=== PATIENT | female | born 1940 | race Caucasian/White ===

== ENCOUNTER 2017-05-05 17:49 | Inpatient (IN) | payer OTHER ==
[2017-05-05] MEDS ORDERED: IPRATROPIUM/ALBUTEROL SULFATE 3 ML AMPUL.NEB NEB ONE (17:55)
[2017-05-05] MEDS ORDERED: methylPREDNISolone SOD SUCC 125 MG/2 ML VIAL IVP ONE (17:56)
--- NOTE | 2017-05-05 18:15 | ED Physician Documentation ---
Upper Respiratory Symptoms - HISTORIAN Historian: patient - HPI Stated Complaint: diff breathing Chief Complaint: Wheezing Onset: days ago (14) Context: denies: recent foreign travel, recent chemotherapy, multiple patients, same sx Severity: mild Associated Symptoms: chills, productive cough, shortness of breath, headache. denies: fever, sweating, sore throat, chest pain Worsened by Deep Breath: Yes Further Comments: yes (She states two weeks ago she started to feel congested and she did at that time stop smoking. She is coughing (productive) she has fatigue, headache, denies a fever. Over the last two weeks she has had an increase in pedal edema. She denies any history of CHF or COPD.) - ROS CONST/EYES: weakness CVS/RESP: shortness of breath. denies: chest pain, palpitations LYMPH: denies: rash GI/: denies: abdominal pain, problems urinating, vomiting, nausea NEURO/PSYCH: denies: dizziness MS/SKIN: muscle aches. denies: rash - PAST HX Lung Disease: none PE Risk Factors: none Surgeries/Procedures: none Immunizations: referred to PCP Allergies/Adverse Reactions: Allergies Allergy/AdvReac Type Severity Reaction Status Date / Time No Known Allergies Allergy Unverified 05/05/17 17:58 Home Medications: Ambulatory Orders Medication Instructions Recorded NK [NK] 05/05/17 - SOCIAL HX Smoking History: other (quit two weeks ago ) Alcohol Use: none Drug Use: none - FAMILY HX Family History: none - VITAL SIGNS Vital Signs: Vital Signs Temp Pulse Resp BP Pulse Ox 97.9 F 70 18 114/69 93 05/06/17 01:51 05/06/17 01:51 05/06/17 01:51 05/06/17 01:51 05/06/17 01:51 - REVIEWED ASSESSMENTS Nursing Assessment Reviewed: Yes Vitals Reviewed: Yes ED Results Lab/Radiology - Lab Results Lab Results: Lab Results 05/05/17 05/05/17 05/05/17 18:13 18:12 18:12 WBC 19.40 K/ul H K/ul (4.00-12.00) RBC 4.85 M/ul M/ul (3.90-5.20) Hgb 14.1 g/dL g/dL (12.0-16.0) Hct 41.7 % % (34.5-46.5) MCV 85.9 fl fl (80.0-100.0) MCH 29.1 pg pg (28.0-34.0) MCHC 33.8 g/dL g/dL (30.0-36.0) RDW 12.5 % % (11.3-14.3) Plt Count 378 K/mm3 K/mm3 (130-400) Sodium 129 mmol/L L mmol/L (136-145) Potassium 3.2 mmol/L L mmol/L (3.5-5.1) Chloride 92 mmol/L L mmol/L (98-107) Carbon Dioxide 28 mmol/L mmol/L (22-30) BUN 16 mg/dL mg/dL (7-17) Creatinine 0.60 mg/dL mg/dL (0.52-1.04) Estimated Creat Clear 110 Est GFR ( Amer) > 60 (60 - ) Est GFR (Non-Af Amer) > 60 (60 - ) Glucose 112 mg/dL H mg/dL (74-106) Calcium 8.6 mg/dL mg/dL (8.4-10.2) Total Bilirubin 0.8 mg/dL mg/dL (0.2-1.3) AST 34 U/L U/L (15-46) ALT 54 U/L U/L (13-69) Alkaline Phosphatase 96 U/L U/L (38-126) NT-Pro-B Natriuret Pep 196.7 pg/mL H pg/mL (15.0-125.0) Total Protein 6.9 g/dL g/dL (6.3-8.2) Albumin 3.2 g/dL L g/dL (3.5-5.0) - Radiology Radiology Impressions: Technique pa and lateral upright Findings: There bibasilar infiltrates. Cardiomegaly is present. The aorta is tortuous and calcified. Bilateral costophrenic angle blunting is present. Thoracic spondylosis and aortic tortuosity are present. I see no hilar or mediastinal mass. There is no pleural effusion or lesion of the bony thorax. Impression: Bibasilar infiltrates Cardiomegaly. Tortuous thoracic aorta. Bilateral costophrenic angle blunting Electronically signed on May 05, 2017 6:31:40 PM AUTOMOBILE MECHANIC MOTOR by: Andrea Dillard - Orders Orders: ED Orders Category Date Time Status Place IV Lock 1T Care 05/05/17 17:56 Active CHEST 2 VIEW [CHEST P.A.&LAT 2 VIEWS] [RAD] Stat Exams 05/05/17 17:55 Completed BLOOD CULTURE Stat Lab 05/05/17 21:04 Received BNP [NT-proBNP] Stat Lab 05/05/17 18:12 Completed CBC/PLATELET/DIFF Stat Lab 05/05/17 18:13 Completed CMP Stat Lab 05/05/17 18:12 Completed 0.9 % Sodium Chloride [Normal Saline] 1,000 ml Med 05/05/17 19:18 Discontinued IV Q1H 0.9 % Sodium Chloride [Sodium Chloride] 100 ml Med 05/05/17 18:44 Discontinued IV .STK-MED Ipratropium/Albuterol Sulfate [Duoneb] Med 05/05/17 17:55 Discontinued 3 ml NEB NOW ONE Potassium Chloride [Klor-Con M20] Med 05/05/17 19:18 Discontinued 20 meq PO NOW ONE cefTRIAXone SODIUM [Rocephin] Med 05/05/17 19:00 Ordered 1 gm IV QD methylPREDNISolone SOD SUCC [Solu-MEDROL] Med 05/05/17 17:56 Discontinued 125 mg IVP NOW ONE Upper Respiratory Symptoms - EXAM General Appearance: alert, mild distress EENT: pharynx nml Neck: normal inspection Respiratory: wheezes, rhonchi, other (mild resp distress - post neb moving more air although rhonchi and wheezing with mild distress still present ) Abdomen: non-tender CVS: reg rate & rhythm, heart sounds normal, equal pulses, no murmur Skin: color nml, no rash, warm,dry Extremities: non-tender, normal range of motion, edema Neuro/Psych: oriented x3, neuro intact, mood/affect nml Discharge Clincal Impression: Pneumonia Qualifiers: Pneumonia type: due to unspecified organism Laterality: bilateral Lung location : lower lobe of lung Qualified Code(s): J18.9 - Pneumonia, unspecified organism Condition: Stable Disposition: ADMITTED INPATIENT Decision to Admit: [id number] Date of Decison to Admit: 05/05/17 Decision Time: 20:00
[2017-05-05] MEDS ORDERED: cefTRIAXone SODIUM 1 GM VIAL ONE ×2 (18:42→18:45)
[2017-05-05] MEDS ORDERED: 0.9 % SODIUM CHLORIDE 100 ML IV ONE (18:44)
[2017-05-05 18:51] LABS: eGFR (African) > 60; eGFR (Non-African) > 60
[2017-05-05 18:56] LABS: MEAN CORPUSCULAR HEMOGLOBIN 29.1 pg (28.0-34.0); MEAN CORPUSCULAR VOLUME 85.9 fl (80.0-100.0)
[2017-05-05] MEDS ORDERED: 0.9 % SODIUM CHLORIDE 1,000 ML IV ONE (19:18)
[2017-05-05] MEDS ORDERED: POTASSIUM CHLORIDE 20 MEQ TABLET.ER PO ONE (19:18)
[2017-05-05] MEDS: cefTRIAXone SODIUM 1 GM VIAL IV SCH (19:30)
[2017-05-05] MEDS ORDERED: IPRATROPIUM/ALBUTEROL SULFATE 3 ML AMPUL.NEB NEB PRN (19:32)
--- NOTE | 2017-05-05 19:45 | Diagnostic Imaging Report ---
MARY KAY STALEY [facility] [address] [facility] [address] [place], [place]. [address] Report Submission Date: May 05, 2017 6:31:40 PM METAL BENDING MACHINE OPERATOR Patient Study Name: ROJELIO AGUAYO Date: May 05, 2017 6:16:27 PM METAL BENDING MACHINE OPERATOR Modality Type: CR Gender: F Description: CHEST : 42 Institution: [facility] Physician: MARY KAY STALEY Pa and lateral chest Clinical history : Coughing Technique pa and lateral upright Findings: There bibasilar infiltrates. Cardiomegaly is present. The aorta is tortuous and calcified. Bilateral costophrenic angle blunting is present. Thoracic spondylosis and aortic tortuosity are present. I see no hilar or mediastinal mass. There is no pleural effusion or lesion of the bony thorax. Impression: Bibasilar infiltrates Cardiomegaly. Tortuous thoracic aorta. Bilateral costophrenic angle blunting Electronically signed on May 05, 2017 6:31:40 PM METAL BENDING MACHINE OPERATOR by: Andrea GUSTAFSON
[2017-05-05 20:50] VITALS: BMI 28.8
[2017-05-05] MEDS ORDERED: ENOXAPARIN SODIUM 30 MG/0.3 ML DISP.SYRIN SQ ONE (20:51)
[2017-05-05] MEDS ORDERED: SALINE FLUSH 10 ML DISP.SYRIN IVF ONE (20:51)
[2017-05-05] MEDS: ENOXAPARIN SODIUM 30 MG/0.3 ML DISP.SYRIN SQ SCH (20:53)
[2017-05-06 07:49] LABS: eGFR (African) > 60; eGFR (Non-African) > 60
--- NOTE | 2017-05-06 07:50 | Diagnostic Imaging Report ---
[facility] [address] [facility].[address] [address] Report Submission Date: May 06, 2017 7:15:35 AM SEO ENGINEER Patient Study Name: ROJELIO AGUAYO Date: May 06, 2017 6:56:14 AM SEO ENGINEER Modality Type: CR Gender: F Description: CHEST : 42 Institution: [facility] Physician: MARY KAY STALEY HISTORY: 76-year-old female with cough COMPARISON: Chest x-ray from the previous day TECHNIQUE: 2 views of the chest were performed. FINDINGS: Bibasilar infiltrates are re-identified, greater posteriorly. No pneumothorax or pulmonary edema. The heart is not enlarged. 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 IMPRESSION: Stable bibasilar infiltrates. Electronically signed on May 06, 2017 7:15:35 AM SEO ENGINEER by: Rick GUSTAFSON
[2017-05-06 07:58] LABS: MEAN CORPUSCULAR VOLUME 86.2 fl (80.0-100.0)
[2017-05-06 08:32] LABS: MONOCYTES % 3 % (0-11); SEGMENTED NEUTROPHILS % 84 % (39-79)
[2017-05-06 11:01] LABS: MONOCYTES % 2 % (0-11); SEGMENTED NEUTROPHILS % 89 % (39-79)
[2017-05-06] MEDS ORDERED: 0.9 % SODIUM CHLORIDE 250 ML IV ONE (11:24)
[2017-05-06] MEDS ORDERED: AZITHROMYCIN 500 MG VIAL IV ONE (11:24)
[2017-05-06] MEDS ORDERED: SALINE FLUSH 10 ML DISP.SYRIN IVF ONE ×4 (11:24→19:37)
[2017-05-06] MEDS ORDERED: ENOXAPARIN SODIUM 30 MG/0.3 ML DISP.SYRIN SQ ONE (11:24)
--- NOTE | 2017-05-06 14:23 | History and Physical Report ---
History of Present Illnes - History of Present Illness Reason for Visit: dyspnea History of Present Illness: 76-year-old white female who states that the last two weeks she had not been feeling well. Patient is been having some increasing shortness of breath dyspnea. Over the last week has developed a cough some dark yellow phlegm. Patient denies any hemoptysis. Patient denies any wheezing. Patient does not have a history of COPD emphysema congestive heart failure pulmonary edema or asthma. Patient sister did call for an ambulance transferred for the patient. Any emergency room patient was noted be hypoxic with and DAGOBERTO to 82% on room air. Chest x-ray some bilateral Basler infiltrates. Patient was subsequently admitted to the hospital for further care and evaluation. - Past Medical History Cardiac: denies: CAD, CHF, HTN Pulmonary: denies: Asthma, COPD, Pulmonary embolus - Past Surgical History Past Surgical History: Cataract Removal (OU) - Past Family History Mother Family History: (86yo Alzheimer's dementia) Father Family History: (79yo Parkinson's disease) Sister 1 Family History: None (Good health) Sister 2 Family History: None (Good helath) Brother 1 Family History: (Alzheimier's demntia) - Past Social History Smoke: # pack years (61), 1 pack per day, Quit (2 weeks ago) Occupation: retired Alcohol: None Drugs: None Lives: Alone - Health Maintenance Health Maintenance: Influenza Vaccine. denies: Pneumococcal Vaccine Influenza Vaccine: Current for this Influenza Season Pneumonia Vaccine: No Resuscitation Status: Resusciation Status Resuscitation Status Full Code - Unable to Obtain History Unable to Obtain: No Review of Systems - Review of Systems Constitutional: Weakness. negative: Fever, Chills, Sweats Eyes: negative: pain, vision change, conjunctivae inflammation, eyelid inflammation, redness ENT: negative: Ear Pain, Ear Discharge, Nose Pain, Nose Discharge, Nose Congestion, Throat Pain, Throat Swelling Respiratory: Cough, Shortness of Breath, SOB with Excertion, Sputum. negative: Dry, Hemoptysis, Wheezing Cardiovascular: negative: Chest Pain, Palpitations, Orthopnea, Edema, Light Headedness Gastrointestinal: negative: Nausea, Vomiting, Abdominal Pain, Diarrhea, Constipation, Melena Genitourinary: negative: Dysuria, Frequency Musculoskeletal: negative: Neck Pain, Shoulder Pain Skin: negative: Rash Neurological: negative: Weakness, Numbness, Change in Speech, Confusion - Medications/Allergies Allergies/Adverse Reactions: Allergies Allergy/AdvReac Type Severity Reaction Status Date / Time No Known Allergies Allergy Unverified 05/05/17 17:58 Current Inpatient Medications: Current Inpatient Medications Albuterol/Ipratropium (Duoneb) 3 ml NEB Q4 PRN PRN Reason: Wheezing Ceftriaxone Sodium (Rocephin) 1 gm IV QD [facility] Last Admin: 05/05/17 19:30 Dose: 1 gm Enoxaparin Sodium (Lovenox) 30 mg SQ QD [facility] Stop: 05/18/17 20:01 Last Admin: 05/05/17 20:53 Dose: 30 mg Azithromycin 500 mg/ Sodium (Chloride) 250 mls @ 125 mls/hr IV Q24H [facility] Stop: 05/11/17 10:59 Exam - Exam Vital Signs: Vital Signs (72 hours) 05/05/17 05/05/17 05/05/17 19:29 20:00 21:26 Temperature 98.8 F 98.7 F 98.8 F Pulse Rate [ 79 89 79 Pulse ox] Respiratory 18 16 18 Rate Blood Pressure 153/84 147/57 153/84 [Left Arm] O2 Sat by Pulse 92 92 92 Oximetry 05/06/17 05/06/17 05/06/17 01:51 06:00 09:44 Temperature 97.9 F 97.4 F L 96.8 F L Pulse Rate [ 70 63 57 L Pulse ox] Respiratory 18 18 20 Rate Blood Pressure 114/69 144/70 120/68 [Left Arm] O2 Sat by Pulse 93 92 94 Oximetry 05/06/17 10:00 Temperature Pulse Rate [ 57 L Pulse ox] Respiratory 20 Rate Blood Pressure [Left Arm] O2 Sat by Pulse Oximetry General: Alert, Oriented to Person, Oriented to Place, Oriented to Time, Cooperative, Mild distress HEENT: Atraumatic, PERRLA, EOMI, Mouth Mucous membr. moist/[place], Nose Mucous membr. moist/[place], Dentition Normal (in fair repair) Neck: Normal Range of Motion Carotids: WNL Thyroid: WNL Lungs: Normal air movement, Speaks full Sentences, Rales, Rhonchi (bases bilaterall) Cardiovascular: Regular rate, Normal S1, Normal S2, No murmurs Abdomen: Normal bowel sounds, Soft, No tenderness, No hepatospenomegaly, No masses Integumentary: Normal, [place], Warm, Dry Extremities: No clubbing, No cyanosis, No edema, Normal pulses, No tenderness/ swelling Neurological: Normal gait, Normal speech, Strength Equal Bilat, Normal tone, Sensation intact, Cranial nerves 3-12 NL, Reflexes 2+ Psych/Mental Status: Mental status NL, Mood NL, Appropriate Affect, Intact Judgment - Laboratory Results Laboratory Results: Laboratory Results 05/06/17 05/06/17 06:40 06:40 WBC 16.20 H RBC 4.50 Hgb 13.0 Hct 38.8 MCV 86.2 MCH 29.0 MCHC 33.6 RDW 12.6 Plt Count 357 Seg Neutrophils % 89 H Lymphocytes % 9 L Monocytes % 2 Plt Morphology Comment Normal RBC Morph Comment Normal Sodium 134 L Potassium 3.5 Chloride 99 Carbon Dioxide 28 BUN 14 Creatinine 0.50 L Estimated Creat Clear 135 Est GFR ( Amer) > 60 Est GFR (Non-Af Amer) > 60 Glucose 141 H Calcium 8.4 Total Bilirubin 0.3 AST 32 ALT 55 Alkaline Phosphatase 88 Total Protein 6.1 L Albumin 2.7 L Assessment/Plan - Assessment/Plan (1) Basal pneumonia of both lungs Status: Acute Assessment: Patient will be started on hypo nebulization treatments. Patient be started on Rocephin and azithromycin for antibiotic therapy. Will monitor patient oxygen need. Patient will be started on supplemental oxygen. Blood cultures have been drawn. VTE Assessment - RISK FACTOR SCORE VTE RISK FACTOR SCORES: AGE OVER 60 YEARS, ACUTE INFECTION OTHER THEN SEPSIS, ANTICIPATED BED CONFINEMENT OR IMMOBILIZATION > 24 HOURS (needs VTE prophalaxis)
[2017-05-06] MEDS: AZITHROMYCIN 500 MG in 0.9 % SODIUM CHLORIDE 250 ML IV SCH (14:45)
[2017-05-06] MEDS: cefTRIAXone SODIUM 1 GM VIAL IV SCH (18:50)
[2017-05-06] MEDS: ENOXAPARIN SODIUM 30 MG/0.3 ML DISP.SYRIN SQ SCH (19:47)
[2017-05-06] MEDS ORDERED: IPRATROPIUM/ALBUTEROL SULFATE 3 ML AMPUL.NEB NEB ONE (20:12)
[2017-05-07] MEDS ORDERED: SALINE FLUSH 10 ML DISP.SYRIN IV SCH (09:00)
--- NOTE | 2017-05-07 12:17 | Discharge Summary ---
Discharge Summary - Discharge Sumary History of Present Illness: 76-year-old white female who states that the last two weeks she had not been feeling well. Patient is been having some increasing shortness of breath dyspnea. Over the last week has developed a cough some dark yellow phlegm. Patient denies any hemoptysis. Patient denies any wheezing. Patient does not have a history of COPD emphysema congestive heart failure pulmonary edema or asthma. Patient sister did call for an ambulance transferred for the patient. Any emergency room patient was noted be hypoxic with and DAGOBERTO to 82% on room air. Chest x-ray some bilateral Basler infiltrates. Patient was subsequently admitted to the hospital for further care and evaluation. Condition at Discharge: Stable Home Medications: Ambulatory Orders Medication Instructions Recorded Azithromycin [Zithromax] 250 mg PO DAILY #3 tablet 05/07/17 Cefdinir 300 mg PO BID #14 capsule 05/07/17 Consultations this Visit: None Procedures this Visit: None Allergies/Adverse Reactions: Allergies Allergy/AdvReac Type Severity Reaction Status Date / Time No Known Allergies Allergy Unverified 05/05/17 17:58 Discharge Summary: Patient was admitted to the hospital. Blood cultures were drawn and subsequently came back no growth. Patient was given a dose of Solu-Medrol IV started on nebulation treatments of Duoneb. Patient was started on Ceftriaxone and azithromycin IV. Patient WBC count did drop from 19,000 to 16,000. Patient was mildly hyponatremia with a sodium of 129 on admission at discharge was 134. Patient did have some mild hyperglycemia during the hospitalization. Patient denied any history of diabetes. At the time to discharge patient stated she was feeling much better was felt that she could be managed on an outpatient basis is patient was subsequently discharged home in stable condition. - Final Diagnosis (1) Basal pneumonia of both lungs Problems: Patient with discharged on PO azithromycin and Cefdinir (2) Hyponatremia Problems: improved (3) Hyperglycemia Problems: Patient was advised to follow prefer primary care provider for further testing to see if she is diabetic
[2017-05-07] MEDS: AZITHROMYCIN 500 MG in 0.9 % SODIUM CHLORIDE 250 ML IV SCH (12:36)
[2017-05-07 14:46] VITALS: BP 127/59
== END 2017-05-07 15:40 | disposition home or self-care (01) | DRG 194 ==
LOC: ED 17:49 → SOUTH 19:20
PROVIDERS: ADMIT Family Medicine; ATTEND Family Medicine
DX: J18.1 Lobar pneumonia, unspecified organism (principal); E87.1 Hypo-osmolality and hyponatremia; R73.9 Hyperglycemia, unspecified
CPT/HCPCS: 71020; 80053; 83880; 85025; 87040; A9270; J0456; J0696; J1650; J2930; J7030; J7050; 94640; 96365; 96375; 99222; 99238; 99284; S1016

== ENCOUNTER 2017-09-20 15:39 | Outpatient (CLI) | payer OTHER ==
--- NOTE | 2017-09-20 18:48 | Diagnostic Imaging Report ---
RONY DE SANTIAGO [facility] [address] [facility] [address] [address] Report Submission Date: September 20, 2017 4:46:57 PM CDT Patient Study Name: ROJELIO AGUAYO Date: September 20, 2017 3:51:42 PM CDT Modality Type: DX Gender: F Description: CHEST : 42 Institution: [facility] Physician: RONY DE SANTIAGO Chest, PA and lateral HISTORY Cough. FINDINGS No infiltrate, effusion or pneumothorax is present. Heart size, mediastinum and pulmonary vascularity are normal. IMPRESSION No active pulmonary disease. Electronically signed on September 20, 2017 4:46:57 PM CDT by: Jim GUSTAFSON
== END 2017-09-20 15:40 ==
LOC: RAD 15:39
PROVIDERS: ATTEND Physician Assistant
DX: R06.2 Wheezing (principal)
CPT/HCPCS: 71046

== ENCOUNTER 2017-12-02 17:03 | Inpatient (IN) | payer OTHER ==
[2017-12-02] MEDS ORDERED: IPRATROPIUM/ALBUTEROL SULFATE 3 ML AMPUL.NEB NEB ONE ×2 (17:04→17:35)
[2017-12-02 18:13] LABS: BASOPHILS % 0.3 (0.0-1.5); EOSINOPHILS % 0.9 % (0.0-6.8); MEAN CORPUSCULAR HEMOGLOBIN 29.7 pg (28.0-34.0); MEAN CORPUSCULAR VOLUME 91.3 fl (80.0-100.0); MONOCYTES % 3.7 % (0.0-11.0)
--- NOTE | 2017-12-02 18:29 | ED Physician Documentation ---
General Adult - HISTORIAN Historian: patient - HPI Stated Complaint: Shortness of Breath Chief Complaint: General Adult Onset: hours Timing: still present Severity: moderate Further Comments: yes (Pt is a 77 yo female with sob. Pt denies cardiac and pulmonary hx, but is a long-time smoker. Pt says she was unable to get her breath this am. Pt is very wheezy on presentation. No fever, no n/v, no chest pain. Pt says she occasionally has ankle swelling. Pt lives alone.) - ROS CONST: no problems EYES/ENT: nasal congestion CVS/RESP: shortness of breath, cough GI/: none MS/SKIN/LYMPH: none - PAST HX Past History: none (Pt denies significant PMHx, takes no meds.) Allergies/Adverse Reactions: Allergies Allergy/AdvReac Type Severity Reaction Status Date / Time No Known Allergies Allergy Unverified 12/02/17 17:24 Home Medications: Ambulatory Orders Medication Instructions Recorded NK [NK] 12/02/17 - SOCIAL HX Smoking History: cigarettes - FAMILY HX Family History: No - VITAL SIGNS Vital Signs: Vital Signs Temp Pulse Resp BP Pulse Ox 98.4 F 88 30 H 163/70 89 L 12/02/17 17:05 12/02/17 17:33 12/02/17 17:05 12/02/17 17:05 12/02/17 17:33 - REVIEWED ASSESSMENTS Nursing Assessment Reviewed: Yes Vitals Reviewed: Yes Progress - Progress Progress: Duoneb HFN Pt's SpO2=88% on presentation Albuterol HFN Solu-medrol 80 mg IV improved, pt more comfortable, but still with very coarse breath sounds/ wheezing. probable COPD, new diagnosis admit to ER doctor until am. - EKG/XRAY/CT EKG: NSR (HR=83; non-specific T-wave changes; possible incomplete RBBB) XRAY: chest (No active pulmonary disease.) ED Results Lab/Radiology - Lab Results Lab Results: Lab Results 12/02/17 17:33 WBC 11.90 K/ul K/ul (4.00-12.00) RBC 5.15 M/ul M/ul (3.90-5.20) Hgb 15.3 g/dL g/dL (12.0-16.0) Hct 47.0 % H % (34.5-46.5) MCV 91.3 fl fl (80.0-100.0) MCH 29.7 pg pg (28.0-34.0) MCHC 32.6 g/dL g/dL (30.0-36.0) RDW 13.4 % % (11.3-14.3) Plt Count 232 K/mm3 K/mm3 (130-400) Neut % (Auto) 75.8 % % (39.0-79.0) Lymph % (Auto) 18.6 % % (16.0-50.0) [place] % (Auto) 3.7 % % (0.0-11.0) Eos % (Auto) 0.9 % % (0.0-6.8) Baso % (Auto) 0.3 (0.0-1.5) Neut # (Auto) 9.0 # k/uL H # k/uL (1.4-7.7) Lymph # (Auto) 2.2 # k/uL # k/uL (0.6-4.0) [place] # (Auto) 0.4 # k/uL # k/uL (0.0-0.9) Eos # (Auto) 0.1 # k/uL # k/uL (0.0-0.6) Baso # (Auto) 0.0 # k/uL # k/uL (0.0-0.5) Reactive Lymphs % 0.7 % % (0.0-5.0) Reactive Lymphs # 0.1 # k/uL # k/uL (0.0-0.8) - Orders Orders: ED Orders Category Date Time Status Continuous EKG monitoring Q30M Care 12/02/17 17:33 Active Continuous Pulse Oximetry Q30M Care 12/02/17 17:[address] IV Lock 1T Care 12/02/17 17:33 Completed CHEST 1VIEW [RAD] Stat Exams 12/02/17 Taken CBC/PLATELET/DIFF Routine Lab 12/02/17 17:33 Completed CKMB Stat Lab 12/02/17 Received CMP Routine Lab 12/02/17 17:33 Received CREATINE KINASE Routine Lab 12/02/17 17:33 Received NT-proBNP Stat Lab 12/02/17 Received TROPONIN I (cTnI) Stat Lab 12/02/17 Received Ipratropium/Albuterol Sulfate [Duoneb] Med 12/02/17 17:04 Discontinued 3 ml NEB .STK-MED ONE Ipratropium/Albuterol Sulfate [Duoneb] Med 12/02/17 17:35 Discontinued 3 ml NEB NOW ONE Oxygen Daily Oxygen 12/02/17 17:45 Ordered EKG WITH COMPARISON Stat Ther 12/02/17 17:33 Ordered General Adult Physical Exam - PHYSICAL EXAM GENERAL APPEARANCE: moderate distress EENT: pharynx normal NECK: normal inspection, supple RESPIRATORY: wheezes, rhonchi, other (very coarse breath sounds) CVS: reg rate & rhythm, heart sounds normal ABDOMEN: soft, no organomegaly, normal bowel sounds BACK: normal inspection, no CVA tenderness SKIN: warm/dry, normal color EXTREMITIES: non-tender, normal range of motion, no evidence of injury, no edema NEURO: oriented X3, motor nml, sensation nml Discharge Clincal Impression: Probable COPD, new dx Referrals: Chuy Estrada MD [Primary Care Provider] - Condition: Stable Disposition: ADMITTED INPATIENT Decision to Admit: [id number] Decision Time: 20:37
[2017-12-02 18:42] LABS: eGFR (Non-African) > 60
[2017-12-02] MEDS ORDERED: methylPREDNISolone SOD SUCC 40 MG/ML VIAL IVP ONE (19:30)
[2017-12-02] MEDS ORDERED: ALBUTEROL SULFATE 2.5 MG/3 ML AMPUL.NEB NEB ONE (19:30)
[2017-12-02] MEDS ORDERED: LEVOFLOXACIN 500MG/D5W 100ML 500 MG in PREMIX BAG 1 BAG IV ONE (21:01)
[2017-12-02] MEDS ORDERED: LEVOFLOXACIN 500MG/D5W 100ML 100 ML IV ONE (21:04)
[2017-12-02 22:42] VITALS: BMI 32.4
[2017-12-02] MEDS: LEVALBUTEROL HCL 1.25 MG/3 ML AMPUL.NEB NEB SCH (22:51)
[2017-12-02] MEDS ORDERED: LORazepam 0.5 MG TABLET PO ONE (23:39)
[2017-12-03] MEDS: LEVALBUTEROL HCL 1.25 MG/3 ML AMPUL.NEB NEB SCH ×6 (01:16→20:41)
[2017-12-03 06:11] LABS: BASOPHILS % 0.1 (0.0-1.5); EOSINOPHILS % 1.9 % (0.0-6.8); MEAN CORPUSCULAR HEMOGLOBIN 30.3 pg (28.0-34.0); MEAN CORPUSCULAR VOLUME 90.3 fl (80.0-100.0); NEUTROPHILS # 9.4 # k/uL (1.4-7.7)
[2017-12-03 06:21] LABS: eGFR (Non-African) > 60
[2017-12-03] MEDS: methylPREDNISolone SOD SUCC 40 MG/ML VIAL IVP SCH ×3 (08:50→20:13)
--- NOTE | 2017-12-03 13:26 | Inpatient Progress Note ---
Subjective - Required Recertification Statement I anticipate X number of days because-include discharge plan: 3 - Review of Systems Events since last encounter: PT NOT SEEN TILL NOW BECAUSE THIS ER PROVIDER NOT INFORMED OF HER ADMIT. Feels better. Wearing oxygen nasal cannula. Verbalizes understanding that she has a pulmonary infection and probably COPD. O2 sats after trip to bathroom 88% on RA, so nurse placed her back on oxygen. She did not feel SOB. Subjective: Removed O2. Have asked RN to see what sats do in 15 minutes w/o oxygen. Then ambulate pt to see what her sats do. Pulmonary: Cough (3-4 days, wet) Objective - Exam Vitals and I&O: Vital Signs Temp 97.2 F L 12/03/17 09:00 Pulse 84 12/03/17 11:00 Resp 24 12/03/17 09:00 BP 153/49 12/03/17 09:00 Pulse Ox 90 L 12/03/17 11:00 Intake & Output 12/02/17 12/03/17 12/03/17 23:59 11:59 23:59 Intake Total 200 120 480 Balance 200 120 480 Weight 83.008 kg Intake: IV 200 Left Wrist 200 Oral 120 480 Other: Voiding Method Toilet Toilet # Voids 1 3 General: Alert, Oriented to Person, Oriented to Place, No acute distress HEENT: Atraumatic Neck: Supple Lungs: Speaks full Sentences (coarse throughout). No: Accessory Muscle Use Cardiovascular: Regular rate, Normal S1, Normal S2 Skin: [place], Warm, Dry Neurological: Normal speech Psych/Mental Status: Mood NL, Appropriate Affect - Results Results: Laboratory Results WBC 10.50 K/ul (4.00-12.00) 12/03/17 05:50 RBC 4.79 M/ul (3.90-5.20) 12/03/17 05:50 Hgb 14.5 g/dL (12.0-16.0) 12/03/17 05:50 Hct 43.3 % (34.5-46.5) 12/03/17 05:50 MCV 90.3 fl (80.0-100.0) 12/03/17 05:50 MCH 30.3 pg (28.0-34.0) 12/03/17 05:50 MCHC 33.6 g/dL (30.0-36.0) 12/03/17 05:50 RDW 13.4 % (11.3-14.3) 12/03/17 05:50 Plt Count 216 K/mm3 (130-400) 12/03/17 05:50 Neut % (Auto) 89.6 % (39.0-79.0) H 12/03/17 05:50 Lymph % (Auto) 7.3 % (16.0-50.0) L 12/03/17 05:50 [place] % (Auto) 1.0 % (0.0-11.0) 12/03/17 05:50 Eos % (Auto) 1.9 % (0.0-6.8) 12/03/17 05:50 Baso % (Auto) 0.1 (0.0-1.5) 12/03/17 05:50 Neut # (Auto) 9.4 # k/uL (1.4-7.7) H 12/03/17 05:50 Lymph # (Auto) 0.8 # k/uL (0.6-4.0) 12/03/17 05:50 [place] # (Auto) 0.1 # k/uL (0.0-0.9) 12/03/17 05:50 Eos # (Auto) 0.2 # k/uL (0.0-0.6) 12/03/17 05:50 Baso # (Auto) 0.0 # k/uL (0.0-0.5) 12/03/17 05:50 Reactive Lymphs % 0.1 % (0.0-5.0) 12/03/17 05:50 Reactive Lymphs # 0.0 # k/uL (0.0-0.8) 12/03/17 05:50 Sodium 141 mmol/L (136-145) 12/03/17 05:50 Potassium 3.6 mmol/L (3.5-5.1) 12/03/17 05:50 Chloride 105 mmol/L (98-107) 12/03/17 05:50 Carbon Dioxide 21 mmol/L (22-30) L 12/03/17 05:50 BUN 12 mg/dL (7-17) 12/03/17 05:50 Creatinine 0.60 mg/dL (0.52-1.04) 12/03/17 05:50 Estimated Creat Clear 124 12/03/17 05:50 Est GFR ( Amer) > 60 (60-) 12/03/17 05:50 Est GFR (Non-Af Amer) > 60 (60-) 12/03/17 05:50 Glucose 159 mg/dL (74-106) H 12/03/17 05:50 Calcium 9.5 mg/dL (8.4-10.2) 12/03/17 05:50 Total Bilirubin 0.2 mg/dL (0.2-1.3) 12/03/17 05:50 AST 25 U/L (15-46) 12/03/17 05:50 ALT 16 U/L (13-69) 12/03/17 05:50 Alkaline Phosphatase 60 U/L (38-126) 12/03/17 05:50 Creatine Kinase 77 U/L (30-135) 12/02/17 17:33 CK-MB (CK-2) 2.1 ng/mL (0.0-5.6) 12/02/17 Unknown Troponin I < 0.03 ng/mL (0.03-0.06) L 12/02/17 Unknown NT-Pro-B Natriuret Pep 149.6 pg/mL (15.0-450.0) 12/02/17 Unknown Total Protein 7.2 g/dL (6.3-8.2) 12/03/17 05:50 Albumin 4.4 g/dL (3.5-5.0) 12/03/17 05:50 Assessment/Plan - Assessment/Plan (1) Pneumonia Status: Acute Current Visit: No Qualifiers: Pneumonia type: due to unspecified organism Laterality: bilateral Lung location: lower lobe of lung Qualified Code(s): J18.9 - Pneumonia, unspecified organism
--- NOTE | 2017-12-03 15:50 | Diagnostic Imaging Report ---
LOLLY ZHANG [facility] [address] [facility] [address] [address] Report Submission Date: Dec 02, 2017 6:03:58 PM CDT Patient Study Name: ROJELIO AGUAYO Date: Dec 02, 2017 5:47:45 PM CDT Modality Type: DX Gender: F Description: CHEST : 44 Institution: [facility] Physician: LOLLY ZHANG Chest, AP portable History: Shortness of breath Findings: No infiltrate, effusion or pneumothorax is present. Heart size, mediastinum and pulmonary vascularity are normal. Impression: No active pulmonary disease. Electronically signed on Dec 02, 2017 6:03:58 PM CDT by: Jim GUSTAFSON
[2017-12-03] MEDS ORDERED: LEVOFLOXACIN 500MG/D5W 100ML 100 ML IV ONE (20:01)
[2017-12-03] MEDS: LEVOFLOXACIN 500MG/D5W 100ML 500 MG in PREMIX BAG 1 BAG IV SCH (20:13)
[2017-12-03] MEDS ORDERED: MELATONIN 3 MG TABLET PO PRN (20:23)
[2017-12-04] MEDS: LEVALBUTEROL HCL 1.25 MG/3 ML AMPUL.NEB NEB SCH ×4 (01:50→14:16)
[2017-12-04] MEDS ORDERED: LEVOFLOXACIN 500MG/D5W 100ML 100 ML IV ONE (09:05)
[2017-12-04] MEDS: LEVOFLOXACIN 500MG/D5W 100ML 500 MG in PREMIX BAG 1 BAG IV SCH (09:13)
[2017-12-04] MEDS: methylPREDNISolone SOD SUCC 40 MG/ML VIAL IVP SCH (09:32)
[2017-12-04 13:24] VITALS: BP 141/52
--- NOTE | 2017-12-04 16:31 | Discharge Summary ---
DATE OF ADMISSION: December 03, 2017 DATE OF DISCHARGE: December 04, 2017 DIAGNOSES ON THIS HOSPITALIZATION: 1. Chronic obstructive pulmonary disease (COPD) exacerbation. 2. Smoking. SUMMARIZATION OF ADMISSION HISTORY AND PHYSICAL: This is a 77-year-old female who presented to the emergency department with a fairly rapid onset of shortness of breath. She did have blood work done and her troponin was negative. EKG was not suggestive of any ischemia. Chest x- ray showed some hyperinflation by my read, although the radiologist did not call that. No infiltrates were noted. HOSPITAL COURSE: She was given IV steroids and started on Levaquin 500 mg daily, as well as nebulizer treatments. She actually continued to improve and was discharged home with the following medications on the day of discharge in improved condition. CONDITION ON DISCHARGE: She was discharged in improved condition. MEDICATIONS ON DISCHARGE: 1. Medrol Dosepak. 2. Levofloxacin 500 mg p.o. daily for 4 more days. 3. ProAir inhaler 2 puffs every 4 hours p.r.n. DISCHARGE INSTRUCTIONS: Follow up with Dr. Estrada in 1 week. [facility]
== END 2017-12-04 14:45 | disposition home or self-care (01) | DRG 192 ==
LOC: ED 17:03 → SOUTH 21:45 → UNDOADMOB 21:45 → OBSVTOIN 21:45 → INTOOBSV 21:45 → OBSVTOIN 12-03 15:09 → UNDODISIN 12-04 14:45
PROVIDERS: ADMIT Family Medicine; ATTEND Family Medicine
DX: J44.1 Chronic obstructive pulmonary disease with (acute) exacerbation (principal); F17.210 Nicotine dependence, cigarettes, uncomplicated
CPT/HCPCS: 71045; 80053; 82550; 82553; 83880; 84484; 85025; 87040; 93005; 94640; 94760; J1956; J2920; J7614; 96365; 96375; 99231; 99238; G0378; J1030; S1016